=== PATIENT | female | born 1995 | race Caucasian/White ===

== ENCOUNTER 2017-06-16 23:05 | Emergency (ER) | payer OTHER ==
--- NOTE | 2017-06-16 23:35 | PDOC ---
History of Present Illness - General History Source: Patient Exam Limitations: No Limitations - History of Present Illness Initial Comments: 06/17/17 01:40 The patient is a 21 year old female, with a significant past medical history of anemia, who presents to the emergency department with, two days of headache, dizziness, subjective fever, nausea, and vomiting. 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 She reports similar symptoms two years ago which was caused by anemia. She reports her symptoms to worsen today. She reports taking 800mg Ibuprofen, Tylenol, and iron supplements for her symptoms. Secondary to her symptoms she reports a thump in her ear. She reports to have finished a 10 day long heavy period two days prior. She denies recent chills. She denies recent diarrhea or constipation. She denies recent dysuria, frequency, urgency or hematuria. She denies recent chest pain or shortness of breath. Allergies: NKA Past surgical history: None reported. Social history: Nonsmoker. Denies EtOH use and recreational drug use. Primary Care Physician: Dr. Brando Ling <Emerald Gonzalez - Last Filed: 06/17/17 03:25> <Tiffanie Batista - Last Filed: 06/17/17 19:54> - General Chief Complaint: Nausea/Vomiting Stated Complaint: DIZZY/NASUEA Time Seen by Provider: 06/16/17 23:34 Past History <Emerald Gonzalez - Last Filed: 06/17/17 03:25> - Past Medical History Anemia: Yes - Reproductive History (#): 0 Therapeutic (s) & number: No - Immunization History Immunization Up to Date: Yes - Suicide/Smoking/Psychosocial Hx Smoking Status: No Smoking History: Never smoked Number of Cigarettes Smoked Daily: 0 Drug/Substance Use Hx: No Substance Use Type: None <Tiffanie Batista - Last Filed: 06/17/17 19:54> - Past Medical History Allergies/Adverse Reactions: Allergies Allergy/AdvReac Type Severity Reaction Status Date / Time No Known Allergies Allergy Verified 06/16/17 23:42 Home Medications: Ambulatory Orders No Home Medications 0 dose .ROUTE UTDICT 04/16/12 Naproxen [Naprosyn] 500 mg PO BID PRN #20 tablet 07/22/13 Review of Systems - Review of Systems Able to Perform ROS?: Yes Comments:: 06/17/17 01:40 GENERAL/CONSTITUTIONAL: +Subjective fever. No chills. No weakness. HEAD, EYES, EARS, NOSE AND THROAT: +Ear thumping. No change in vision. No ear discharge. No sore throat. CARDIOVASCULAR: No chest pain or shortness of breath. RESPIRATORY: No cough, wheezing, or hemoptysis. GASTROINTESTINAL: +nausea. +vomiting. No diarrhea or constipation. GENITOURINARY: No dysuria, frequency, or change in urination. MUSCULOSKELETAL: No joint or muscle swelling or pain. No neck or back pain. SKIN: No rash NEUROLOGIC:+Headache. +Dizziness. No loss of consciousness, or change in strength/sensation. ENDOCRINE: No increased thirst. No abnormal weight change. HEMATOLOGIC/LYMPHATIC: No anemia, easy bleeding, or history of blood clots. ALLERGIC/IMMUNOLOGIC: No hives or skin allergy. <Emerald Gonzalez - Last Filed: 06/17/17 03:25> *Physical Exam - Vital Signs Last Vital Signs Temp Pulse Resp BP Pulse Ox 97.8 F 53 L 18 118/68 100 06/16/17 23:36 06/17/17 01:35 06/17/17 01:35 06/17/17 01:35 06/16/17 23:36 - Physical Exam Comments: 06/17/17 03:25 GENERAL: Awake, alert, and fully oriented, in no acute distress HEAD: No signs of trauma EYES: No nystagmus of eyes. PERRLA, EOMI, sclera anicteric, conjunctiva clear ENT: Auricles normal inspection, hearing grossly normal, nares patent, oropharynx clear without exudates. Moist mucosa NECK: Normal ROM, supple, no lymphadenopathy, JVD, or masses LUNGS: Breath sounds equal, clear to auscultation bilaterally. No wheezes, and no crackles HEART: Regular rate and rhythm, normal S1 and S2, no murmurs, rubs or gallops ABDOMEN: Soft, nontender, normoactive bowel sounds. No guarding, no rebound. No masses EXTREMITIES: Normal range of motion, no edema. No clubbing or cyanosis. No cords, erythema, or tenderness NEUROLOGICAL: Cranial nerves II through XII grossly intact. Normal speech, normal gait SKIN: Warm, Dry, normal turgor, no rashes or lesions noted. <Emerald Gonzalez - Last Filed: 06/17/17 03:25> ED Treatment Course - LABORATORY CBC & Chemistry Diagram: 06/17/17 00:30 06/17/17 00:30 - ADDITIONAL ORDERS Additional order review: Laboratory Results 06/17/17 06/17/17 00:30 00:30 PT with INR 13.00 H INR 1.15 H Sodium 137 Potassium 4.5 D Chloride 104 Carbon Dioxide 26 Anion Gap 7 L BUN 7 D Creatinine 0.5 L Creat Clearance w eGFR > 60 Random Glucose 89 Calcium 8.6 Total Bilirubin 0.3 D AST 22 ALT 17 D Alkaline Phosphatase 67 Total Protein 7.6 Albumin 3.9 06/17/17 00:30 RBC 4.25 MCV 61.8 L MCHC 30.1 L RDW 19.4 H D MPV 8.8 Neutrophils % 61.5 D Lymphocytes % 27.0 D Monocytes % 9.3 Eosinophils % 1.1 Basophils % 1.1 - Medications Given in the ED: ED Medications Discontinued Medications Generic Name Dose Route Start Last Admin Trade Name Devonq PRN Reason Stop Dose Admin Acetaminophen 1,000 mg 06/17/17 00:16 06/17/17 00:22 Ofirmev Injection - IVPB 06/17/17 00:17 1,000 mg ONCE ONE Administration Ketorolac Tromethamine 60 mg 06/17/17 01:14 06/17/17 01:20 Toradol Injection - IM 06/17/17 01:15 60 mg ONCE ONE Administration Ondansetron HCl 4 mg 06/17/17 00:38 06/17/17 00:43 Zofran Injection IVPB 06/17/17 00:39 4 mg ONCE ONE Administration Sodium Chloride 1,000 ml 06/17/17 00:57 06/17/17 01:06 Normal Saline - IV 06/17/17 00:58 1,000 ml ONCE ONE Administration <Emerald Gonzalez - Last Filed: 06/17/17 03:25> - LABORATORY CBC & Chemistry Diagram: 06/17/17 00:30 06/17/17 00:30 <Tiffanie Batista - Last Filed: 06/17/17 19:54> Medical Decision Making - Medical Decision Making 06/17/17 19:49 Pt comes with headache and feeling weak and unwell. Mom states that she has heavy periods and that her Hb has been known to drop to 4 in the past. Pt has a Hb of 7.9 today, which is better than usual. Other labs are normal. Pt has a headache. She was treated with tylenol, toradol, imitrex (which she has a bad reaction too -felling flushed but no outright allergy) Pt finally improved after benadryl. She was complaining of terrible headache, so we got a head CT. I discussed LP with the patient and her mom, and they are refusing it at this time. I explained that she could be bleeding into her brain. with an aneurysm. Pt understands and she wants to go home. <Tiffanie Batista - Last Filed: 06/17/17 19:54> *DC/Admit/Observation/Transfer - Attestations Scribe Attestion: 06/17/17 01:41 Documentation prepared by Emerald Gonzalez, acting as medical pathologist for Tiffanie Batista MD. <Emerald Gonzalez - Last Filed: 06/17/17 03:25> - Discharge Dispostion Admit: No <Tiffanie Batista - Last Filed: 06/17/17 19:54> Diagnosis at time of Disposition: Migraine - Discharge Dispostion Disposition: HOME Condition at time of disposition: Improved - Referrals Referrals: Brando Ling [Primary Care Provider] - - Patient Instructions Printed Discharge Instructions: Migraine -- Adult - Post Discharge Activity Forms/Work/School Notes: Back to Work
[2017-06-16 23:42] VITALS: TEMP 97.8; BMI 27.3
[2017-06-17] MEDS ORDERED: ACETAMINOPHEN 1000 MG/100 ML VIAL (NON FORMULARY) IVPB ONE (00:16)
[2017-06-17] MEDS ORDERED: ACETAMINOPHEN INJECTION 100 ML IVPB ONE (00:23)
[2017-06-17] MEDS ORDERED: ONDANSETRON *ODT* 4 MG TABLET ONE (00:35)
[2017-06-17] MEDS ORDERED: ONDANSETRON 4 MG/2 ML VIAL IVPB ONE (00:38)
[2017-06-17] MEDS ORDERED: ONDANSETRON 4 MG/2 ML VIAL ONE (00:39)
[2017-06-17 00:40] LABS: BASO % 1.1 % (0-2.0); EOS % 1.1 % (0-4.5); HEMATOCRIT 26.3 % (32.4-45.2); HEMOGLOBIN 7.9 GM/dL (10.7-15.3); MCHC 30.1 g/dl (32.0-36.0); MEAN CELL VOLUME 61.8 fl (80-96); MEAN PLT VOLUME 8.8 fl (7.5-11.1); MONO % 9.3 % (3.8-10.2); NEUT % 61.5 % (42.8-82.8); PLATELET COUNT 206 K/MM3 (134-434); RBC 4.25 M/mm3 (3.60-5.2); RDW 19.4 % (11.6-15.6); WHITE BLOOD COUNT 6.8 K/mm3 (4.0-10.0)
[2017-06-17 00:42] LABS: ADD RBC MORPHOLOGY YES; MCH 18.6 pg (25.7-33.7)
[2017-06-17 00:53] LABS: INR 1.15 (0.82-1.09)
[2017-06-17] MEDS ORDERED: SODIUM CHLORIDE 0.9% 500 ML INFUS.BAG IV ONE (00:57)
[2017-06-17 01:04] LABS: ALBUMIN 3.9 g/dl (3.4-5.0); ANION GAP 7 (8-16); BLOOD UREA NITROGEN 7 mg/dL (7-18); CALCIUM 8.6 mg/dL (8.5-10.1); CHLORIDE 104 mmol/L (98-107); CO2 26 mmol/L (21-32); GLUCOSE,RANDOM 89 mg/dL (74-106); POTASSIUM 4.5 mmol/L (3.5-5.1); SODIUM 137 mmol/L (136-145)
[2017-06-17 01:07] LABS: ALK PHOS 67 U/L (45-117); BILIRUBIN,TOTAL 0.3 mg/dL (0.2-1.0); CREATININE 0.5 mg/dL (0.55-1.02); SGOT/AST 22 U/L (15-37); SGPT/ALT 17 U/L (12-78); TOT PROT 7.6 g/dl (6.4-8.2)
[2017-06-17] MEDS ORDERED: KETOROLAC TROMETHAMINE 30 MG/1 ML VIAL ONE (01:14)
[2017-06-17] MEDS ORDERED: KETOROLAC TROMETHAMINE 60 MG/2 ML VIAL IM ONE (01:14)
[2017-06-17 01:36] VITALS: BP 118/68; PULSE 53
[2017-06-17 02:06] LABS: ANISOCYTOSIS 2+; MACROCYTOSIS 0
[2017-06-17] MEDS ORDERED: SUMATRIPTAN SUCCINATE 6 MG/0.5 ML VIAL SQ ONE (02:15)
[2017-06-17] MEDS ORDERED: SUMATRIPTAN SUCCINATE 6 MG/0.5 ML VIAL ONE (02:16)
[2017-06-17 02:17] LABS: URINE APPEARANCE SLCLOUDY; URINE BILIRUBIN NEGATIVE (NEGATIVE); URINE BLOOD NEGATIVE (NEGATIVE); URINE COLOR LTYELLOW; URINE GLUCOSE (UA) NEGATIVE (NEGATIVE); URINE KETONE NEGATIVE (NEGATIVE); URINE LEUK ESTERASE TRACE (NEGATIVE); URINE NITRITE NEGATIVE (NEGATIVE); URINE PROTEIN NEGATIVE (NEGATIVE); URINE UROBILINOGEN NEGATIVE mg/dL (0.2-1.0)
[2017-06-17 02:18] LABS: HCG,QUALITATIVE URINE NEGATIVE
[2017-06-17 02:27] LABS: EPI CELLS MODERATE /HPF (FEW); URINE MUCUS RARE
== END 2017-06-17 04:10 | disposition home or self-care (01) ==
LOC: JER 23:05 → SUPCPDRO 23:05 → JER 06-17 04:10
PROC: 3E033NZ Introduction of Analgesics, Hypnotics, Sedatives into Peripheral Vein, Percutaneous Approach (ICD-10-PCS; principal; 2017-06-16)
PROC: 3E033GC Introduction of Other Therapeutic Substance into Peripheral Vein, Percutaneous Approach (ICD-10-PCS; 2017-06-16)
PROC: 3E033GC Introduction of Other Therapeutic Substance into Peripheral Vein, Percutaneous Approach (ICD-10-PCS; 2017-06-16)
PROC: 3E0233Z Introduction of Anti-inflammatory into Muscle, Percutaneous Approach (ICD-10-PCS; 2017-06-16)
PROC: 3E013GC Introduction of Other Therapeutic Substance into Subcutaneous Tissue, Percutaneous Approach (ICD-10-PCS; 2017-06-16)
DX: G43.909 Migraine, unspecified, not intractable, without status migrainosus (principal)
CPT/HCPCS: 36415; 70450-TC; 80053; 81003; 81015; 84703; 85025; 85610; 86850; 86900; 86901; 96372; 96374; 96375; 99282-25

== ENCOUNTER 2017-07-04 11:52 | Emergency (ER) | payer OTHER ==
[2017-07-04 11:57] VITALS: BP 142/64; PULSE 81; TEMP 101.5; BMI 27.3
[2017-07-04] MEDS ORDERED: ACETAMINOPHEN 325 MG TABLET (FP) PO ONE (14:03)
[2017-07-04] MEDS ORDERED: ONDANSETRON *ODT* 4 MG TABLET SL ONE (14:04)
[2017-07-04] MEDS ORDERED: ONDANSETRON *ODT* 4 MG TABLET ONE (14:08)
[2017-07-04] MEDS ORDERED: ACETAMINOPHEN 325 MG TABLET (FP) ONE (14:08)
--- NOTE | 2017-07-04 14:25 | PDOC ---
History of Present Illness - General Chief Complaint: Cold Symptoms Stated Complaint: FEVER Time Seen by Provider: 07/04/17 13:47 History Source: Patient Exam Limitations: No Limitations - History of Present Illness Initial Comments: 07/04/17 14:21 21-year-old female complaining of headache, sore throat, myalgia, arthralgia, cough, and weakness since yesterday. Patient states took Motrin prior to arrival. Patient also complaining of nausea. Patient has no other complaints of abdominal pain, dysuria, irregular menses, or diarrhea. Timing/Duration: reports: yesterday Severity: reports: moderate Associated Symptoms: reports: cough, headache, muscle aches, sore throat Past History - Travel Traveled outside of the country in the last 30 days: No - Past Medical History Allergies/Adverse Reactions: Allergies Allergy/AdvReac Type Severity Reaction Status Date / Time sumatriptan [From Imitrex] Allergy Verified 07/04/17 11:57 Home Medications: Ambulatory Orders No Home Medications 0 dose .ROUTE UTDICT 04/16/12 Anemia: Yes COPD: No - Reproductive History (#): 0 Therapeutic (s) & number: No - Immunization History Immunization Up to Date: Yes - Suicide/Smoking/Psychosocial Hx Smoking Status: No Smoking History: Never smoked Have you smoked in the past 12 months: No Number of Cigarettes Smoked Daily: 0 Information on smoking cessation initiated: No Hx Alcohol Use: No Drug/Substance Use Hx: No Substance Use Type: None Patient Lives Alone: No Lives with/in: parents Review of Systems - Review of Systems Able to Perform ROS?: Yes Constitutional: Yes: Chills, Fever, Malaise HEENTM: Yes: Throat Pain Respiratory: Yes: Cough Cardiac (ROS): No: Symptoms Reported ABD/GI: Yes: Vomiting : No: Symptoms Reported Musculoskeletal: Yes: Joint Pain, Muscle Pain Integumentary: No: Symptoms Reported Neurological: Yes: Headache *Physical Exam - Vital Signs Last Vital Signs Temp Pulse Resp BP Pulse Ox 101.5 F H 81 19 142/64 100 07/04/17 11:54 07/04/17 11:54 07/04/17 11:54 07/04/17 11:54 07/04/17 11:54 - Physical Exam General Appearance: Yes: Nourished, Appropriately Dressed. No: Apparent Distress HEENT: positive: EOMI, LEV, TMs Normal, Pharynx Normal. negative: Pale Conjunctivae Neck: positive: Supple Respiratory/Chest: positive: Lungs Clear, Normal Breath Sounds. negative: Respiratory Distress, Accessory Muscle Use Cardiovascular: positive: Regular Rhythm, Regular Rate. negative: Murmur Gastrointestinal/Abdominal: positive: Soft. negative: Tenderness Integumentary: positive: Normal Color, Warm, Moist Neurologic: positive: Motor Strength 5/5 (ambulatory) ED Treatment Course - Medications Given in the ED: ED Medications Discontinued Medications Generic Name Dose Route Start Last Admin Trade Name Freq PRN Reason Stop Dose Admin Acetaminophen 650 mg 07/04/17 14:03 07/04/17 14:14 Tylenol - PO 07/04/17 14:04 650 mg ONCE ONE Administration Ondansetron HCl 4 mg 07/04/17 14:04 07/04/17 14:14 Zofran Odt - SL 07/04/17 14:05 4 mg ONCE ONE Administration Medical Decision Making - Medical Decision Making 07/04/17 14:23 Patient with URI symptoms and febrile upon arrival. Patient also complaining of nausea. Patient ordered for Zofran, Tylenol. Patient will be treated with Tamiflu and discharged home. *DC/Admit/Observation/Transfer Diagnosis at time of Disposition: Influenza - Discharge Dispostion Disposition: HOME Condition at time of disposition: Improved - Referrals Referrals: Brando Ling [Primary Care Provider] - - Patient Instructions Printed Discharge Instructions: DI for Influenza -- Adult Additional Instructions: Please drink plenty of fluids and take Tylenol Motrin for headache and fever. Please take Tamiflu as prescribed until completed. - Post Discharge Activity
== END 2017-07-04 14:29 | disposition home or self-care (01) ==
LOC: JERFT 11:52
DX: J11.1 Influenza due to unidentified influenza virus with other respiratory manifestations (principal)
CPT/HCPCS: 99281-25